=== PATIENT | male | born 1945 | race Caucasian/White ===

== ENCOUNTER 2017-02-15 04:24 | Observation (INO) | payer OTHER ==
[~2017-02-15] VITALS: Ht 177.8 cm; Wt 98.4 kg
[2017-02-15] VITALS (8 sets, daily range): BP systolic 119–155; BP diastolic 58–72
[~2017-02-15 04:24] MED LIST: ACYCLOVIR400 MG PO; AMITRIPTYLINE H10 MG PO; AMLODIPINE BESY10 MG PO; APRESOLINE25 MG PO; ASPIR 8181 M1 PO; ASPIR-TRIN325 M1 PO; B-COMPLEX-VITA1 EACH PO; BENAZEPRIL HCL40 MG PO; CO Q-1010 MG PO; DOK PLUS TABLE1 EACH PO; EXTRA STRENGTH500 M1 PO; GLIMEPIRIDE1 MG PO; HYDRALAZINE HCL25 MG PO; LAMISIL250 MG PO; LIDOCAINE700 MG TD; LOPRESSOR25 MG PO; LOPRESSOR50 MG PO; MAG-OXIDE400 MG PO; METFORMIN HCL1000 MG PO; MULTI-VITAMIN1 EAC4 PO; OXYCODONE-ACET1 EACH PO; PANTOPRAZOLE SO40 MG PO; POTASSIUM CHLO20 ME1 PO; PREDNISONE10 M1 PO; REVLIMID10 MG PO; TYLENOL EXTRA500 MG PO; ULTRAM50 MG PO; VENTOLIN HFA18 GM IH; VITAMIN E200 UNI2 PO; ZOLPIDEM TARTRAT5 MG PO
[2017-02-15 05:24] LABS: CHLORIDE 103 mEq/L (99-109); SODIUM 135 mEq/L (136-147)
[2017-02-15 05:26] LABS: GLUCOSE 194 mg/dL (70-99); POTASSIUM 3.5 mEq/L (3.7-5.4)
[2017-02-15 05:27] LABS: ANION GAP 8 MEQ/L (2-14)
[2017-02-15 05:28] LABS: TOTAL BILIRUBIN 0.2 mg/dL (0.0-1.0)
[2017-02-15 05:29] LABS: ALKALINE PHOSPHATASE 46 IU/L (3-129)
[2017-02-15 05:30] LABS: GFR ESTIMATE (CALCULATED) > 59 mL/min/
[2017-02-15 05:31] LABS: UREA NITROGEN (BUN) 24 mg/dL (9-23)
[2017-02-15 05:34] LABS: TROP-I INTERPRETATION NEGATIVE; TROPONIN-I < 0.01 ng/mL (0.0-0.30)
[2017-02-15 05:39] LABS: HEMATOCRIT 34.6 % (38.0-50.0); MCH 32.4 PG (29.0-34.0); MCHC 32.7 G/DL (30.0-36.0); MCV 99.1 FL (86-99); MEAN PLAT.VOLUME 9.5 uM^3 (9.0-12.4); PLATELET COUNT 165 K/uL (156-360); RBC DIS.WIDTH-CV 14.1 % (11.8-14.6); RBC DIS.WIDTH-SD 51.7 % (39-53); RED BLOOD COUNT 3.49 M/uL (4.00-5.50); WHITE BLOOD COUNT 6.5 K/uL (4.1-10.2)
[2017-02-15 09:39] LABS: ADD MIUA? NO; BILIRUBIN NEGATIVE; BLOOD NEGATIVE; COLOR YELLOW ((YELLOW)); GLUCOSE (STRIP) 150; KETONES NEGATIVE; LEUKOCYTES NEGATIVE; NITRITE NEGATIVE; PROTEIN (STRIP) NEGATIVE; SPECIFIC GRAVITY 1.019 (1.000-1.030); UROBILINOGEN 0.2 MG/DL (0.2-1.0)
[2017-02-15 10:11] LABS: UCUL ADDED? NO
[2017-02-15] MEDS ORDERED: PROTONIX40 MG PO (10:55)
[2017-02-15] MEDS ORDERED: TRIAMCINOLONE A15 GM TP (10:58)
[2017-02-15 12:57] LABS: PROTHROMBIN TIME 11.2 SEC (10.2-12.9)
[2017-02-15 12:57] LABS: POINT-OF-CARE METER ID UU13113700
[2017-02-15 13:00] LABS: PTT 23.2 SEC (25-37)
[2017-02-15 13:20] LABS: TROP-I INTERPRETATION NEGATIVE; TROPONIN-I < 0.01 ng/mL (0.0-0.30)
[2017-02-15 17:35] LABS: POINT-OF-CARE METER ID UU13113700
[2017-02-16 03:44] VITALS: BP 135/71; BP 138/89; BP 145/78
[2017-02-16 05:36] LABS: BASOPHIL COUNT 0.1 K/uL (0-0.1); EOSINOPHIL (%) 7.2 % (0-5); EOSINOPHIL COUNT 0.4 K/uL (0-0.3); HEMATOCRIT 32.3 % (38.0-50.0); IMMATURE GRANULOCYTE (%) 0.2 % (0.0-0.7); INSTRUMENT ABS NEUTROPHIL CT 3.5 K/uL; LYMPHOCYTE COUNT 1.1 K/uL (1.0-2.8); MCH 33.6 PG (29.0-34.0); MCHC 33.1 G/DL (30.0-36.0); MCV 101.6 FL (86-99); MEAN PLAT.VOLUME 9.8 uM^3 (9.0-12.4); MONOCYTE (%) 11.2 % (3-12); MONOCYTE COUNT 0.6 K/uL (0-0.8); NEUTROPHIL (%) 61.4 % (45-76); NEUTROPHIL COUNT 3.5 K/uL (1.8-6.4); PLATELET COUNT 158 K/uL (156-360); RBC DIS.WIDTH-CV 14.3 % (11.8-14.6); RBC DIS.WIDTH-SD 53.6 % (39-53); RED BLOOD COUNT 3.18 M/uL (4.00-5.50); WHITE BLOOD COUNT 5.7 K/uL (4.1-10.2)
[2017-02-16 06:02] LABS: ALKALINE PHOSPHATASE 42 IU/L (3-129); ANION GAP 5 MEQ/L (2-14); CHLORIDE 107 MEQ/L (99-109); DIRECT BILIRUBIN 0.1 mg/dL (0.0-0.3); GFR ESTIMATE (CALCULATED) > 59 mL/min/; GLUCOSE 143 mg/dL (70-99); POTASSIUM 4.1 MEQ/L (3.7-5.4); SAMPLE HEMOLYSIS CHECK 0; SAMPLE ICTERIC CHECK 0; SAMPLE LIPEMIA CHECK 0; SODIUM 139 MEQ/L (136-147); TOTAL BILIRUBIN 0.3 MG/DL (0.0-1.0); UREA NITROGEN (BUN) 14 mg/dL (9-23)
[2017-02-16 07:55] VITALS: BP 167/84
[2017-02-16 08:41] LABS: TROP-I INTERPRETATION NEGATIVE; TROPONIN-I 0.02 ng/mL (0.0-0.30)
[2017-02-16 11:51] VITALS: BP 168/98
== END 2017-02-16 11:45 | disposition home or self-care (01) ==
LOC: EME → EDBD 04:24 → EME 04:24 → EDOF 08:00 → ENRESERV 08:01 → EDOF 08:19 → ENRESERV 08:22 → 5WEST 09:30 → ENPENDDIS 02-16 → 5WEST 02-16 11:45
PROVIDERS: Emergency Medicine; Internal Medicine; Physician Assistant
DX: I95.1 Orthostatic hypotension (principal); E86.0 Dehydration; T46.7X5A Adverse effect of peripheral vasodilators, initial encounter; E11.42 Type 2 diabetes mellitus with diabetic polyneuropathy; C90.01 Multiple myeloma in remission; M19.90 Unspecified osteoarthritis, unspecified site; Z79.899 Other long term (current) drug therapy; I10 Essential (primary) hypertension; Z86.19 Personal history of other infectious and parasitic diseases; Z79.82 Long term (current) use of aspirin; E87.1 Hypo-osmolality and hyponatremia; K21.9 Gastro-esophageal reflux disease without esophagitis; E87.6 Hypokalemia; Z86.2 Personal history of diseases of the blood and blood-forming organs and certain disorders involving the immune mechanism; Z87.891 Personal history of nicotine dependence
CPT/HCPCS: 70450; 80048; 80053; 80076; 81003; 82948; 83605; 84484; 85025; 85027; 85610; 85730; 87040; 93005; 99202; 99281; 99284; G0378; J1650; J7030

== ENCOUNTER 2017-02-18 17:51 | Observation (INO) | payer OTHER ==
[~2017-02-18] VITALS: Ht 177.8 cm; Wt 84.5 kg
[~2017-02-18 17:51] MED LIST changes: +PROTONIX40 MG PO; +TRIAMCINOLONE A15 GM TP
[2017-02-18 18:17] LABS: HEMATOCRIT 40.5 % (38.0-50.0); MCHC 32.3 G/DL (30.0-36.0); MCV 98.8 FL (86-99); MEAN PLAT.VOLUME 9.9 uM^3 (9.0-12.4); PLATELET COUNT 169 K/uL (156-360); RBC DIS.WIDTH-CV 13.8 % (11.8-14.6); RBC DIS.WIDTH-SD 50.5 % (39-53); WHITE BLOOD COUNT 11.2 K/uL (4.1-10.2)
[2017-02-18 18:25] LABS: CHLORIDE 106 mEq/L (99-109); POTASSIUM 4.3 mEq/L (3.7-5.4); SODIUM 138 mEq/L (136-147)
[2017-02-18 18:26] LABS: GLUCOSE 211 mg/dL (70-99)
[2017-02-18 18:28] LABS: ANION GAP 14 MEQ/L (2-14)
[2017-02-18 18:30] LABS: GFR ESTIMATE (CALCULATED) 53 mL/min/
[2017-02-18 18:31] LABS: UREA NITROGEN (BUN) 19 mg/dL (9-23)
[2017-02-18 18:37] LABS: TROP-I INTERPRETATION NEGATIVE; TROPONIN-I < 0.01 ng/mL (0.0-0.30)
[2017-02-18 18:54] LABS: MAGNESIUM 1.6 mg/dL (1.3-2.7)
[2017-02-18 18:58] LABS: ALKALINE PHOSPHATASE 58 IU/L (3-129)
[2017-02-18 19:05] LABS: TOTAL BILIRUBIN 0.4 mg/dL (0.0-1.0)
[2017-02-19 00:01] VITALS: BP 106/53
[2017-02-19 00:54] VITALS: BP 106/53
[2017-02-19 04:44] VITALS: BP 123/56
[2017-02-19 07:33] LABS: HEMATOCRIT 32.1 % (38.0-50.0); MCH 33.5 PG (29.0-34.0); MCHC 33.6 G/DL (30.0-36.0); MCV 99.7 FL (86-99); MEAN PLAT.VOLUME 10.1 uM^3 (9.0-12.4); PLATELET COUNT 157 K/uL (156-360); RBC DIS.WIDTH-CV 13.9 % (11.8-14.6); RBC DIS.WIDTH-SD 51.2 % (39-53); WHITE BLOOD COUNT 6.2 K/uL (4.1-10.2)
[2017-02-19 07:45] VITALS: BP 132/65
[2017-02-19 07:50] LABS: RED BLOOD COUNT 3.22 M/uL (4.00-5.50)
[2017-02-19 07:56] LABS: ALKALINE PHOSPHATASE 40 IU/L (3-129); ANION GAP 7 MEQ/L (2-14); CHLORIDE 108 MEQ/L (99-109); SAMPLE HEMOLYSIS CHECK 0; SAMPLE ICTERIC CHECK 0; SAMPLE LIPEMIA CHECK 0; SODIUM 137 MEQ/L (136-147); TOTAL BILIRUBIN 0.3 MG/DL (0.0-1.0); UREA NITROGEN (BUN) 16 mg/dL (9-23)
[2017-02-19 08:00] LABS: GFR ESTIMATE (CALCULATED) > 59 mL/min/; GLUCOSE 114 mg/dL (70-99)
[2017-02-19 11:51] VITALS: BP 120/60
[2017-02-23] MEDS ORDERED: L-GLUTAMINE500 MG PO (13:35)
== END 2017-02-19 12:16 | disposition home or self-care (01) ==
LOC: EME 17:51 → EDOF 21:15 → 5WEST 21:15 → EDOF 21:15 → ENRESERV 21:16 → 5WEST 23:44
PROVIDERS: Internal Medicine
DX: N17.9 Acute kidney failure, unspecified (principal); R55 Syncope and collapse; E86.0 Dehydration; A05.9 Bacterial foodborne intoxication, unspecified; R19.7 Diarrhea, unspecified; E11.9 Type 2 diabetes mellitus without complications; C90.01 Multiple myeloma in remission; Z94.84 Stem cells transplant status; I10 Essential (primary) hypertension; J45.909 Unspecified asthma, uncomplicated; K21.9 Gastro-esophageal reflux disease without esophagitis; Z86.2 Personal history of diseases of the blood and blood-forming organs and certain disorders involving the immune mechanism; Z86.19 Personal history of other infectious and parasitic diseases; Z79.82 Long term (current) use of aspirin; Z87.891 Personal history of nicotine dependence; Z79.899 Other long term (current) drug therapy
CPT/HCPCS: 71020; 80048; 80053; 83630; 83735; 84484; 85027; 87177; 87493; 93005; 99202; 99281; 99285; G0378; J7030; J7040

== ENCOUNTER 2017-05-28 11:38 | Emergency (ER) | payer OTHER ==
[~2017-05-28] VITALS: Ht 175.3 cm; Wt 88.8 kg
[~2017-05-28 11:38] MED LIST changes: -CO Q-1010 MG PO; +CO Q-10200 MG PO; +L-GLUTAMINE500 MG PO
[2017-05-28 12:33] LABS: HEMATOCRIT 39.4 % (38.0-50.0); HEMOGLOBIN 12.6 G/DL (12.5-16.6); MCH 29.5 PG (29.0-34.0); MCV 92.3 FL (86-99); PLATELET COUNT 126 K/uL (156-360); RBC DIS.WIDTH-CV 14.7 % (11.8-14.6); RED BLOOD COUNT 4.27 M/uL (4.00-5.50); WHITE BLOOD COUNT 11.1 K/uL (4.1-10.2)
[2017-05-28 12:45] LABS: CHLORIDE 105 mEq/L (99-109); POTASSIUM 4.9 mEq/L (3.7-5.4); SODIUM 137 mEq/L (136-147)
[2017-05-28 12:47] LABS: GLUCOSE 182 mg/dL (70-99)
[2017-05-28 12:51] LABS: GFR ESTIMATE (CALCULATED) > 59 mL/min/ (58.99-99999); UREA NITROGEN (BUN) 19 mg/dL (9-23)
[2017-05-28 14:03] LABS: TROP-I INTERPRETATION NEGATIVE; TROPONIN-I < 0.01 ng/mL (0.0-0.30)
[2017-05-28] MEDS ORDERED: ULTRAM50 MG PO (17:30)
[2017-05-28] MEDS ORDERED: HUMALOG MI100 UNIT/1 SC ×2 (17:30)
[2017-05-28] MEDS ORDERED: TYLENOL EXTRA500 MG PO (17:31)
[2017-05-28 17:59] LABS: APPEARANCE CLEAR ((CLEAR)); BILIRUBIN NEGATIVE; BLOOD NEGATIVE; COLOR YELLOW ((YELLOW)); GLUCOSE (STRIP) >=500; KETONES NEGATIVE; LEUKOCYTES NEGATIVE; NITRITE NEGATIVE; PROTEIN (STRIP) NEGATIVE; SPECIFIC GRAVITY 1.011 (1.000-1.030); UCUL ADDED? NO; UROBILINOGEN 0.2 MG/DL (0.2-1.0)
[2017-05-28 21:25] VITALS: BP 142/82
== END 2017-05-28 21:25 | disposition home or self-care (01) ==
LOC: EME 11:38 → EDOF 20:44 → EME 20:44 → EDOF 20:44 → ENRESERV 20:46 → CANRESERV 21:09 → ENRESERV 21:09
PROVIDERS: Physician Assistant
DX: E86.0 Dehydration (principal); R55 Syncope and collapse; E11.9 Type 2 diabetes mellitus without complications; I10 Essential (primary) hypertension; E78.5 Hyperlipidemia, unspecified; C90.01 Multiple myeloma in remission; J45.909 Unspecified asthma, uncomplicated; K21.9 Gastro-esophageal reflux disease without esophagitis; Z87.891 Personal history of nicotine dependence; Z79.82 Long term (current) use of aspirin; Z88.2 Allergy status to sulfonamides; Z88.8 Allergy status to other drugs, medicaments and biological substances
CPT/HCPCS: 70450; 71046; 80048; 81003; 84484; 85027; 93005; 99281; 99285; J7030